=== PATIENT | female | born 1955 | race Caucasian/White ===

== ENCOUNTER 2018-02-07 22:35 | Inpatient (IN) | payer MEDICARE, MEDICAID ==
[~2018-02-07] VITALS: Ht 152.4 cm; Wt 129.9 kg
[2018-02-07 23:20] LABS: BASOPHILS % (AUTO) 0.3 % (0-1); EOSINOPHILS # (AUTO) 0.1 X10'3 (0-0.9); EOSINOPHILS % (AUTO) 2.2 % (0-6); HEMOGLOBIN 11.6 g/dl (12.0-16.0); LYMPHOCYTES % (AUTO) 14.3 % (21-51); MEAN CORPUSCULAR HEMOGLOBIN 26.4 PG (27.0-31.0); MEAN CORPUSCULAR HGB CONC 33.2 % (33.0-36.5); MEAN CORPUSCULAR VOLUME 79.7 FL (78-98); MEAN PLATELET VOLUME 11.4 FL (7.4-10.4); MONOCYTES # (AUTO) 0.4 X10'3 (0-0.9); MONOCYTES % (AUTO) 6.2 % (2-12); NEUTROPHILS # (AUTO) 5.1 X10'3 (1.8-7.7); PLATELET COUNT 124 X10'3 (140-440); RED CELL DISTRIBUTION WIDTH 18.1 % (11.5-14.5); WHITE BLOOD COUNT 6.7 X10'3 (4.5-11.0)
[2018-02-07] MEDS ORDERED: CefTRIAXone 2gm/D5W 50ml 50 ML IV ONE (23:25)
[2018-02-07] MEDS ORDERED: normal saline 1000ML IV soln IV ONE (23:25)
[2018-02-07 23:28] LABS: PROTHROMBIN TIME 10.3 SECONDS (9.0-12.0)
[2018-02-07 23:32] LABS: ALANINE AMINOTRANSFERASE 19 U/L (12-78); ALBUMIN 3.4 G/DL (3.4-5.0); ALBUMIN/GLOBULIN RATIO 0.9 (1.1-1.5); ALKALINE PHOSPHATASE 91 IU/L (46-116); ANION GAP 12 (8-16); ASPARTATE AMINO TRANSFERASE 16 U/L (10-37); BILIRUBIN,TOTAL 0.8 MG/DL (0.1-1.0); BLOOD UREA NITROGEN 32 MG/DL (7-18); BUN/CREATININE RATIO 20.1 (6.6-38.0); CALCIUM 9.1 MG/DL (8.5-10.1); CHLORIDE 109 MMOL/L (99-107); CREATININE 1.59 MG/DL (0.40-0.90); GLUCOSE 112 MG/DL (70-104); POTASSIUM 3.9 MMOL/L (3.5-5.1); SODIUM 143 MMOL/L (135-145); TOTAL CARBON DIOXIDE 22.5 MMOL/L (24-32); TOTAL PROTEIN 7.1 G/DL (6.4-8.2); eGFR 33 ML/MIN
[2018-02-08 00:01] LABS: URINE HCG NEGATIVE (NEG)
[2018-02-08 00:06] LABS: CLARITY,URINE CLOUDY (Clear); COLOR,URINE YELLOW (Yellow); GLUCOSE, URINE NEGATIVE (Neg); KETONES,URINE TRACE mg/dl (Neg); LEUKOCYTE ESTERASE ,URINE SMALL (Neg); NITRITES, URINE NEGATIVE (Neg); OCCULT BLOOD,URINE NEGATIVE (Neg); PH,URINE 5.5 (4.8-8.0); PROTEIN,URINE TRACE mg/dl (Neg); UROBILINOGEN,URINE 0.2 E.U/dL (0.2-1.0)
[2018-02-08 00:11] LABS: UA COLLECTION TYPE FOLEY CATH
[2018-02-08 00:13] LABS: WBC,URINE 20-30 /HPF (0-4)
[2018-02-08 00:14] LABS: BACTERIA,URINE 4+ /HPF (Neg); RBC,URINE 0-2 /HPF (0-2); SQUAMOUS EPITHELIAL CELL,UR MODERATE /LPF (FEW); WBC CLUMPS,URINE FEW /HPF (NEGATIVE); YEAST FEW /HPF (NEGATIVE)
[2018-02-08 00:29] LABS: LARGE PLATELETS FEW; PLATELET ESTIMATE DECREASED
[2018-02-08 01:21] LABS: URINE AMPHETAMINE SCREEN NEGATIVE (Neg); URINE BARBITUATE SCREEN NEGATIVE (Neg); URINE BENZODIAZEPINES SCREEN NEGATIVE (Neg); URINE CANNABINOID SCREEN NEGATIVE (Neg); URINE COCAINE SCREEN NEGATIVE (Neg); URINE METHADONE SCREEN NEGATIVE (Neg); URINE OPIATE SCREEN NEGATIVE (Neg); URINE PHENCYCLIDINE SCREEN NEGATIVE (Neg)
[2018-02-08] MEDS ORDERED: mag hydrox/Alum hydrox/simeth 30ml oral suspension PO PRN (02:15)
[2018-02-08] MEDS ORDERED: acetaminophen 325mg tablet PO PRN ×2 (02:15)
[2018-02-08] MEDS ORDERED: HYDROcodone/acetaminophen 5mg/325mg tablet PO PRN (02:15)
[2018-02-08] MEDS ORDERED: magnesium hydroxide 30ml (MOM) UD suspension PO PRN (02:15)
[2018-02-08] MEDS ORDERED: HYDROcodone/acetaminophen 10/325mg tab PO PRN (02:15)
[2018-02-08] MEDS ORDERED: potassium Cl 20 mEq SR tablet PO PRN ×2 (02:15)
[2018-02-08] MEDS ORDERED: potassium Cl 40MEQ/NS 500ml 500 ML IV PRN ×2 (02:15)
[2018-02-08 04:00] VITALS: BP 134/37
[2018-02-08] MEDS: normal saline 1000ml 1,000 ML IV SCH ×3 (04:24→21:52)
[2018-02-08 06:00] VITALS: BP 140/60
[2018-02-08] MEDS: K and/or MAG REPLACEMENT MC SCH (08:00)
[2018-02-08] MEDS: lactobacillus rhamnosus 10,000 MMU CELLS/CAPSULE PO SCH ×2 (08:48→20:34)
[2018-02-08] MEDS: enoxaparin 40mg/0.4ml syringe SUBCUT SCH (08:48)
[2018-02-08 11:00] VITALS: BP 132/56
[2018-02-08 15:00] VITALS: BP 114/70
[2018-02-08 18:00] VITALS: BP 124/49
[2018-02-08] MEDS: CefTRIAXone/D5W-Rocephin 1gm 50 ML IV SCH (21:51)
[2018-02-08 22:00] VITALS: BP 173/57
[2018-02-09] MEDS ORDERED: albuterol 2.5 MG/3 ML nebule NEB ONE (00:20)
[2018-02-09 03:00] VITALS: BP 105/37
[2018-02-09 05:59] LABS: BASOPHILS % (AUTO) 0 % (0-1); EOSINOPHILS % (AUTO) 0.3 % (0-6); HEMATOCRIT 32.7 % (35.0-45.0); HEMOGLOBIN 10.7 g/dl (12.0-16.0); LYMPHOCYTES # (AUTO) 0.5 X10'3 (1.1-4.8); LYMPHOCYTES % (AUTO) 6.8 % (21-51); MEAN CORPUSCULAR HGB CONC 32.8 % (33.0-36.5); MEAN CORPUSCULAR VOLUME 79.5 FL (78-98); MONOCYTES # (AUTO) 0.4 X10'3 (0-0.9); MONOCYTES % (AUTO) 4.7 % (2-12); NEUTROPHILS # (AUTO) 6.7 X10'3 (1.8-7.7); NEUTROPHILS % (AUTO) 88.2 % (42-75); PLATELET COUNT 116 X10'3 (140-440); RED BLOOD COUNT 4.11 X10'6 (4.20-5.60); WHITE BLOOD COUNT 7.6 X10'3 (4.5-11.0)
[2018-02-09 06:00] VITALS: BP 105/55
[2018-02-09 06:27] LABS: ALBUMIN 2.9 G/DL (3.4-5.0); ANION GAP 8 (8-16); BLOOD UREA NITROGEN 28 MG/DL (7-18); BUN/CREATININE RATIO 22.8 (6.6-38.0); CALCIUM 8.2 MG/DL (8.5-10.1); CHLORIDE 110 MMOL/L (99-107); CREATININE 1.23 MG/DL (0.40-0.90); GLUCOSE 130 MG/DL (70-104); POTASSIUM 3.8 MMOL/L (3.5-5.1); SODIUM 140 MMOL/L (135-145); TOTAL CARBON DIOXIDE 21.9 MMOL/L (24-32); eGFR 44 ML/MIN
[2018-02-09] MEDS: K and/or MAG REPLACEMENT MC SCH (08:00)
[2018-02-09] MEDS: lactobacillus rhamnosus 10,000 MMU CELLS/CAPSULE PO SCH ×2 (08:18→19:57)
[2018-02-09] MEDS: enoxaparin 40mg/0.4ml syringe SUBCUT SCH (08:18)
[2018-02-09 11:00] VITALS: BP 105/50
[2018-02-09] MEDS ORDERED: CLOP75TA35 PO (11:01)
[2018-02-09] MEDS ORDERED: ERGO500014 PO (11:02)
[2018-02-09] MEDS ORDERED: SERT100T PO (11:02)
[2018-02-09] MEDS ORDERED: OXYB5TAB11 PO (11:02)
[2018-02-09] MEDS ORDERED: TRAZ-146 PO (11:03)
[2018-02-09] MEDS ORDERED: fluconazole 100mg tablet PO ONE (11:50)
[2018-02-09] MEDS: normal saline 1000ml 1,000 ML IV SCH ×2 (12:00→19:10)
[2018-02-09 15:00] VITALS: BP 105/40
[2018-02-09] MEDS: nystatin 15 GM powder TP SCH ×2 (15:50→20:38)
[2018-02-09 19:00] VITALS: BP 122/69
[2018-02-09] MEDS: oxybutynin 5mg tablet PO SCH (19:57)
[2018-02-09] MEDS: sertraline 50mg tablet PO SCH (19:57)
[2018-02-09] MEDS: vitamin D (cholecalciferol) 1,000 unit tablet PO SCH (19:57)
[2018-02-09] MEDS: CefTRIAXone/D5W-Rocephin 1gm 50 ML IV SCH (20:38)
[2018-02-09] MEDS: traZODone 50mg tablet PO SCH (20:55)
[2018-02-09 23:00] VITALS: BP 113/51
[2018-02-10 03:00] VITALS: BP 125/55
[2018-02-10] MEDS: normal saline 1000ml 1,000 ML IV SCH ×2 (04:15→14:15)
[2018-02-10 05:08] LABS: BASOPHILS % (AUTO) 0.2 % (0-1); EOSINOPHILS # (AUTO) 0.1 X10'3 (0-0.9); EOSINOPHILS % (AUTO) 2.6 % (0-6); HEMATOCRIT 29.4 % (35.0-45.0); HEMOGLOBIN 9.7 g/dl (12.0-16.0); LYMPHOCYTES # (AUTO) 0.7 X10'3 (1.1-4.8); LYMPHOCYTES % (AUTO) 13.8 % (21-51); MEAN CORPUSCULAR HEMOGLOBIN 26.4 PG (27.0-31.0); MEAN CORPUSCULAR HGB CONC 32.9 % (33.0-36.5); MEAN CORPUSCULAR VOLUME 80.1 FL (78-98); MEAN PLATELET VOLUME 11.5 FL (7.4-10.4); MONOCYTES # (AUTO) 0.3 X10'3 (0-0.9); NEUTROPHILS # (AUTO) 4.1 X10'3 (1.8-7.7); NEUTROPHILS % (AUTO) 77.4 % (42-75); PLATELET COUNT 102 X10'3 (140-440); RED BLOOD COUNT 3.67 X10'6 (4.20-5.60); RED CELL DISTRIBUTION WIDTH 18.3 % (11.5-14.5); WHITE BLOOD COUNT 5.3 X10'3 (4.5-11.0)
[2018-02-10 05:45] LABS: ALBUMIN 2.7 G/DL (3.4-5.0); ANION GAP 9 (8-16); BLOOD UREA NITROGEN 27 MG/DL (7-18); BUN/CREATININE RATIO 19.7 (6.6-38.0); CALCIUM 8.7 MG/DL (8.5-10.1); CHLORIDE 110 MMOL/L (99-107); CREATININE 1.37 MG/DL (0.40-0.90); GLUCOSE 104 MG/DL (70-104); POTASSIUM 3.9 MMOL/L (3.5-5.1); SODIUM 141 MMOL/L (135-145); TOTAL CARBON DIOXIDE 22.3 MMOL/L (24-32); eGFR 39 ML/MIN
[2018-02-10 06:00] VITALS: BP 139/66
[2018-02-10 07:15] LABS: PLATELET ESTIMATE DECREASED
[2018-02-10 07:16] LABS: LARGE PLATELETS FEW
[2018-02-10] MEDS: vitamin D (cholecalciferol) 1,000 unit tablet PO SCH (07:51)
[2018-02-10] MEDS: oxybutynin 5mg tablet PO SCH ×2 (07:52→20:05)
[2018-02-10] MEDS: lactobacillus rhamnosus 10,000 MMU CELLS/CAPSULE PO SCH ×2 (07:52→20:04)
[2018-02-10] MEDS: clopidogrel 75mg tablet PO SCH (07:52)
[2018-02-10] MEDS: sertraline 50mg tablet PO SCH ×2 (07:52→20:06)
[2018-02-10] MEDS: enoxaparin 40mg/0.4ml syringe SUBCUT SCH (07:53)
[2018-02-10] MEDS: nystatin 15 GM powder TP SCH ×3 (07:54→20:05)
[2018-02-10] MEDS: K and/or MAG REPLACEMENT MC SCH (08:00)
[2018-02-10 11:00] VITALS: BP 123/64
[2018-02-10] MEDS: ipratropium/albuterol 3ml nebule NEB PRN ×2 (12:45→20:41)
[2018-02-10 15:00] VITALS: BP 125/71
[2018-02-10 17:18] LABS: FERRITIN 108 NG/ML (8-252)
[2018-02-10 17:27] LABS: % IRON SATURATION 7 % (11-46); IRON 20 UG/DL (49-151); TOTAL IRON BINDING CAPACITY 270 UG/DL (259-388)
[2018-02-10 19:27] VITALS: BP 128/66
[2018-02-10] MEDS: CefTRIAXone/D5W-Rocephin 1gm 50 ML IV SCH (20:05)
[2018-02-10] MEDS: traZODone 50mg tablet PO SCH (20:05)
[2018-02-10 23:00] VITALS: BP 118/54
[2018-02-11] VITALS (7 sets, daily range): BP systolic 105–175; BP diastolic 36–66
[2018-02-11 05:00] LABS: BASOPHILS % (AUTO) 0.3 % (0-1); EOSINOPHILS # (AUTO) 0.2 X10'3 (0-0.9); EOSINOPHILS % (AUTO) 2.9 % (0-6); HEMOGLOBIN 9.8 g/dl (12.0-16.0); LYMPHOCYTES # (AUTO) 0.5 X10'3 (1.1-4.8); LYMPHOCYTES % (AUTO) 8.5 % (21-51); MEAN CORPUSCULAR HEMOGLOBIN 26.4 PG (27.0-31.0); MEAN CORPUSCULAR HGB CONC 32.7 % (33.0-36.5); MEAN CORPUSCULAR VOLUME 80.9 FL (78-98); MEAN PLATELET VOLUME 11.6 FL (7.4-10.4); MONOCYTES # (AUTO) 0.3 X10'3 (0-0.9); MONOCYTES % (AUTO) 5.9 % (2-12); NEUTROPHILS # (AUTO) 4.8 X10'3 (1.8-7.7); NEUTROPHILS % (AUTO) 82.4 % (42-75); PLATELET COUNT 101 X10'3 (140-440); RED BLOOD COUNT 3.71 X10'6 (4.20-5.60); RED CELL DISTRIBUTION WIDTH 18.6 % (11.5-14.5); WHITE BLOOD COUNT 5.8 X10'3 (4.5-11.0)
[2018-02-11 05:28] LABS: ALBUMIN 2.8 G/DL (3.4-5.0); ANION GAP 10 (8-16); BLOOD UREA NITROGEN 26 MG/DL (7-18); BUN/CREATININE RATIO 18.8 (6.6-38.0); CALCIUM 8.9 MG/DL (8.5-10.1); CHLORIDE 109 MMOL/L (99-107); CREATININE 1.38 MG/DL (0.40-0.90); GLUCOSE 111 MG/DL (70-104); SODIUM 142 MMOL/L (135-145); TOTAL CARBON DIOXIDE 23.5 MMOL/L (24-32); eGFR 38 ML/MIN
[2018-02-11] MEDS: normal saline 1000ml 1,000 ML IV SCH ×3 (08:20→20:12)
[2018-02-11] MEDS: lactobacillus rhamnosus 10,000 MMU CELLS/CAPSULE PO SCH ×2 (08:22→20:13)
[2018-02-11] MEDS: vitamin D (cholecalciferol) 1,000 unit tablet PO SCH (08:22)
[2018-02-11] MEDS: clopidogrel 75mg tablet PO SCH (08:22)
[2018-02-11] MEDS: sertraline 50mg tablet PO SCH ×2 (08:22→20:12)
[2018-02-11] MEDS: oxybutynin 5mg tablet PO SCH ×2 (08:22→20:12)
[2018-02-11] MEDS: enoxaparin 40mg/0.4ml syringe SUBCUT SCH (08:23)
[2018-02-11] MEDS: nystatin 15 GM powder TP SCH ×3 (08:23→20:15)
[2018-02-11] MEDS: K and/or MAG REPLACEMENT MC SCH (08:24)
[2018-02-11] MEDS: levoFLOXACIN-Levaquin 750MG/D5 150 ML IV SCH (10:51)
[2018-02-11] MEDS: ipratropium/albuterol 3ml nebule NEB PRN (11:08)
[2018-02-11] MEDS: fluconazole-Diflucan 100MG/NS 50 ML IV SCH (13:33)
[2018-02-11] MEDS ORDERED: VANCOMYCIN LEVEL IV ONE (14:30)
[2018-02-11] MEDS: ipratropium/albuterol 3ml nebule NEB SCH ×3 (16:00→23:37)
[2018-02-11] MEDS: traZODone 50mg tablet PO SCH (20:12)
[2018-02-12 02:00] VITALS: BP 150/66
[2018-02-12] MEDS: ipratropium/albuterol 3ml nebule NEB SCH ×6 (03:05→23:28)
[2018-02-12 05:11] LABS: BASOPHILS % (AUTO) 0.3 % (0-1); EOSINOPHILS # (AUTO) 0.2 X10'3 (0-0.9); EOSINOPHILS % (AUTO) 3.1 % (0-6); HEMATOCRIT 28.9 % (35.0-45.0); HEMOGLOBIN 9.5 g/dl (12.0-16.0); LYMPHOCYTES # (AUTO) 0.5 X10'3 (1.1-4.8); MEAN CORPUSCULAR HEMOGLOBIN 26.3 PG (27.0-31.0); MEAN CORPUSCULAR HGB CONC 32.9 % (33.0-36.5); MEAN CORPUSCULAR VOLUME 79.9 FL (78-98); MEAN PLATELET VOLUME 11.4 FL (7.4-10.4); MONOCYTES # (AUTO) 0.3 X10'3 (0-0.9); MONOCYTES % (AUTO) 5.9 % (2-12); NEUTROPHILS # (AUTO) 4.3 X10'3 (1.8-7.7); NEUTROPHILS % (AUTO) 81.7 % (42-75); PLATELET COUNT 107 X10'3 (140-440); RED BLOOD COUNT 3.62 X10'6 (4.20-5.60); RED CELL DISTRIBUTION WIDTH 18.6 % (11.5-14.5); WHITE BLOOD COUNT 5.2 X10'3 (4.5-11.0)
[2018-02-12 05:28] LABS: ALBUMIN 2.6 G/DL (3.4-5.0); ANION GAP 8 (8-16); BLOOD UREA NITROGEN 24 MG/DL (7-18); BUN/CREATININE RATIO 18.8 (6.6-38.0); CALCIUM 8.8 MG/DL (8.5-10.1); CHLORIDE 110 MMOL/L (99-107); CREATININE 1.28 MG/DL (0.40-0.90); GLUCOSE 110 MG/DL (70-104); POTASSIUM 3.9 MMOL/L (3.5-5.1); SODIUM 143 MMOL/L (135-145); TOTAL CARBON DIOXIDE 24.6 MMOL/L (24-32); eGFR 42 ML/MIN
[2018-02-12 06:00] VITALS: BP 150/70
[2018-02-12] MEDS: K and/or MAG REPLACEMENT MC SCH (08:00)
[2018-02-12] MEDS: fluconazole-Diflucan 100MG/NS 50 ML IV SCH (08:03)
[2018-02-12] MEDS: levoFLOXACIN-Levaquin 750MG/D5 150 ML IV SCH (08:05)
[2018-02-12] MEDS: sertraline 50mg tablet PO SCH ×2 (08:06→20:41)
[2018-02-12] MEDS: clopidogrel 75mg tablet PO SCH (08:06)
[2018-02-12] MEDS: vitamin D (cholecalciferol) 1,000 unit tablet PO SCH (08:06)
[2018-02-12] MEDS: lactobacillus rhamnosus 10,000 MMU CELLS/CAPSULE PO SCH ×2 (08:06→20:40)
[2018-02-12] MEDS: oxybutynin 5mg tablet PO SCH ×2 (08:06→20:40)
[2018-02-12] MEDS: nystatin 15 GM powder TP SCH ×3 (08:06→20:41)
[2018-02-12] MEDS: enoxaparin 40mg/0.4ml syringe SUBCUT SCH (08:14)
[2018-02-12 11:00] VITALS: BP 101/78
[2018-02-12] MEDS ORDERED: methylPREDNISolone sod succ 125mg/2ml vial IV ONE (14:20)
[2018-02-12] MEDS: methylPREDNISolone sod succ 125mg/2ml vial IV ONE ×2 (14:37→14:38)
[2018-02-12 15:00] VITALS: BP 107/55
[2018-02-12] MEDS: normal saline 1000ml 1,000 ML IV SCH (17:44)
[2018-02-12 19:30] VITALS: BP 136/61
[2018-02-12] MEDS: traZODone 50mg tablet PO SCH (20:40)
[2018-02-12] MEDS: methylPREDNISolone sod succ 125mg/2ml vial IV SCH (20:40)
[2018-02-12 21:08] LABS: OCCULT BLOOD STOOL NEGATIVE (Neg)
[2018-02-12 22:00] VITALS: BP 123/61
[2018-02-13] MEDS: methylPREDNISolone sod succ 125mg/2ml vial IV SCH ×4 (02:10→19:53)
[2018-02-13 02:20] VITALS: BP 134/55
[2018-02-13] MEDS: ipratropium/albuterol 3ml nebule NEB SCH ×6 (03:51→23:22)
[2018-02-13 05:05] LABS: BASOPHILS % (AUTO) 0.1 % (0-1); EOSINOPHILS % (AUTO) 0 % (0-6); HEMATOCRIT 30.5 % (35.0-45.0); LYMPHOCYTES # (AUTO) 0.3 X10'3 (1.1-4.8); LYMPHOCYTES % (AUTO) 6.8 % (21-51); MEAN CORPUSCULAR HEMOGLOBIN 26.3 PG (27.0-31.0); MEAN CORPUSCULAR HGB CONC 32.8 % (33.0-36.5); MEAN CORPUSCULAR VOLUME 80.3 FL (78-98); MEAN PLATELET VOLUME 11.2 FL (7.4-10.4); MONOCYTES % (AUTO) 0.6 % (2-12); NEUTROPHILS # (AUTO) 3.9 X10'3 (1.8-7.7); NEUTROPHILS % (AUTO) 92.5 % (42-75); PLATELET COUNT 110 X10'3 (140-440); RED CELL DISTRIBUTION WIDTH 18.2 % (11.5-14.5); WHITE BLOOD COUNT 4.3 X10'3 (4.5-11.0)
[2018-02-13 05:18] LABS: ALBUMIN 2.8 G/DL (3.4-5.0); ANION GAP 7 (8-16); BLOOD UREA NITROGEN 27 MG/DL (7-18); BUN/CREATININE RATIO 20.8 (6.6-38.0); CALCIUM 9.1 MG/DL (8.5-10.1); CHLORIDE 109 MMOL/L (99-107); GLUCOSE 184 MG/DL (70-104); POTASSIUM 4.4 MMOL/L (3.5-5.1); SODIUM 139 MMOL/L (135-145); TOTAL CARBON DIOXIDE 23.4 MMOL/L (24-32); eGFR 41 ML/MIN
[2018-02-13 05:30] VITALS: BP 135/62
[2018-02-13 05:58] LABS: LARGE PLATELETS FEW; PLATELET ESTIMATE DECREASED
[2018-02-13] MEDS: vitamin D (cholecalciferol) 1,000 unit tablet PO SCH (07:48)
[2018-02-13] MEDS: sertraline 50mg tablet PO SCH ×2 (07:50→19:53)
[2018-02-13] MEDS: lactobacillus rhamnosus 10,000 MMU CELLS/CAPSULE PO SCH ×2 (07:50→19:53)
[2018-02-13] MEDS: clopidogrel 75mg tablet PO SCH (07:50)
[2018-02-13] MEDS: oxybutynin 5mg tablet PO SCH ×2 (07:50→19:53)
[2018-02-13] MEDS: enoxaparin 40mg/0.4ml syringe SUBCUT SCH (07:51)
[2018-02-13] MEDS: K and/or MAG REPLACEMENT MC SCH (08:00)
[2018-02-13] MEDS: fluconazole 100mg tablet PO SCH (08:12)
[2018-02-13] MEDS: nystatin 15 GM powder TP SCH ×3 (08:12→19:53)
[2018-02-13 11:00] VITALS: BP 122/57
[2018-02-13] MEDS: levoFLOXACIN 750MG TABLET PO SCH (11:12)
[2018-02-13] MEDS: normal saline 1000ml 1,000 ML IV SCH (13:51)
[2018-02-13 15:00] VITALS: BP 104/42
[2018-02-13 18:00] VITALS: BP 115/48
[2018-02-13] MEDS: traZODone 50mg tablet PO SCH (19:52)
[2018-02-13 22:00] VITALS: BP 103/65
[2018-02-14] MEDS: methylPREDNISolone sod succ 125mg/2ml vial IV SCH ×3 (01:26→20:34)
[2018-02-14 02:00] VITALS: BP 126/69
[2018-02-14] MEDS: ipratropium/albuterol 3ml nebule NEB SCH ×6 (02:42→23:05)
[2018-02-14 05:46] LABS: BASOPHILS % (AUTO) 0 % (0-1); EOSINOPHILS % (AUTO) 0.5 % (0-6); HEMATOCRIT 30.1 % (35.0-45.0); HEMOGLOBIN 9.9 g/dl (12.0-16.0); LYMPHOCYTES # (AUTO) 0.6 X10'3 (1.1-4.8); LYMPHOCYTES % (AUTO) 6.2 % (21-51); MEAN CORPUSCULAR HEMOGLOBIN 26.4 PG (27.0-31.0); MEAN PLATELET VOLUME 11.5 FL (7.4-10.4); MONOCYTES # (AUTO) 0.2 X10'3 (0-0.9); NEUTROPHILS # (AUTO) 8.1 X10'3 (1.8-7.7); NEUTROPHILS % (AUTO) 91.3 % (42-75); PLATELET COUNT 121 X10'3 (140-440); RED BLOOD COUNT 3.76 X10'6 (4.20-5.60); RED CELL DISTRIBUTION WIDTH 18.1 % (11.5-14.5); WHITE BLOOD COUNT 8.9 X10'3 (4.5-11.0)
[2018-02-14 06:00] VITALS: BP 126/43
[2018-02-14 06:04] LABS: ALANINE AMINOTRANSFERASE 43 U/L (12-78); ALBUMIN 2.8 G/DL (3.4-5.0); ALBUMIN/GLOBULIN RATIO 0.7 (1.1-1.5); ALKALINE PHOSPHATASE 89 IU/L (46-116); ANION GAP 10 (8-16); ASPARTATE AMINO TRANSFERASE 49 U/L (10-37); BILIRUBIN,TOTAL 0.5 MG/DL (0.1-1.0); BLOOD UREA NITROGEN 35 MG/DL (7-18); BUN/CREATININE RATIO 26.1 (6.6-38.0); CALCIUM 9.1 MG/DL (8.5-10.1); CHLORIDE 109 MMOL/L (99-107); CREATININE 1.34 MG/DL (0.40-0.90); GLUCOSE 176 MG/DL (70-104); MAGNESIUM 1.8 MG/DL (1.5-2.4); PHOSPHORUS 3.9 MG/DL (2.3-4.5); POTASSIUM 4.4 MMOL/L (3.5-5.1); SODIUM 141 MMOL/L (135-145); TOTAL CARBON DIOXIDE 22.5 MMOL/L (24-32); TOTAL PROTEIN 6.7 G/DL (6.4-8.2); eGFR 40 ML/MIN
[2018-02-14 06:05] LABS: RPR Non Reactive (Non Reactive)
[2018-02-14 06:17] LABS: ANISOCYTOSIS 2+; PLATELET ESTIMATE DECREASED; ROULEAUX 1+
[2018-02-14] MEDS: nystatin 15 GM powder TP SCH ×3 (07:50→20:36)
[2018-02-14] MEDS: sertraline 50mg tablet PO SCH ×2 (07:52→20:37)
[2018-02-14] MEDS: fluconazole 100mg tablet PO SCH (07:52)
[2018-02-14] MEDS: clopidogrel 75mg tablet PO SCH (07:52)
[2018-02-14] MEDS: lactobacillus rhamnosus 10,000 MMU CELLS/CAPSULE PO SCH ×2 (07:52→20:36)
[2018-02-14] MEDS: oxybutynin 5mg tablet PO SCH ×2 (07:53→20:37)
[2018-02-14] MEDS: vitamin D (cholecalciferol) 1,000 unit tablet PO SCH (07:53)
[2018-02-14] MEDS: enoxaparin 40mg/0.4ml syringe SUBCUT SCH (07:54)
[2018-02-14] MEDS: K and/or MAG REPLACEMENT MC SCH (08:00)
[2018-02-14] MEDS ORDERED: cyanocobalamin 1,000 mcg/ml inj IM SCH (08:45)
[2018-02-14] MEDS: levoFLOXACIN 750MG TABLET PO SCH (10:44)
[2018-02-14 11:00] VITALS: BP 139/61
[2018-02-14 15:00] VITALS: BP 124/43
[2018-02-14 19:00] VITALS: BP 120/56
[2018-02-14] MEDS: traZODone 50mg tablet PO SCH (20:37)
[2018-02-14 23:00] VITALS: BP 130/59
[2018-02-15] MEDS: normal saline 1000ml 1,000 ML IV SCH ×2 (00:33→20:14)
[2018-02-15] MEDS: ipratropium/albuterol 3ml nebule NEB SCH ×6 (02:56→23:05)
[2018-02-15 03:00] VITALS: BP 122/55
[2018-02-15 05:52] LABS: BASOPHILS % (AUTO) 0.1 % (0-1); EOSINOPHILS # (AUTO) 0.1 X10'3 (0-0.9); HEMOGLOBIN 9.8 g/dl (12.0-16.0); LYMPHOCYTES # (AUTO) 0.5 X10'3 (1.1-4.8); LYMPHOCYTES % (AUTO) 5.7 % (21-51); MEAN CORPUSCULAR HEMOGLOBIN 26.4 PG (27.0-31.0); MEAN CORPUSCULAR HGB CONC 32.7 % (33.0-36.5); MEAN CORPUSCULAR VOLUME 80.6 FL (78-98); MEAN PLATELET VOLUME 11.6 FL (7.4-10.4); MONOCYTES # (AUTO) 0.3 X10'3 (0-0.9); MONOCYTES % (AUTO) 3.5 % (2-12); NEUTROPHILS % (AUTO) 89.7 % (42-75); PLATELET COUNT 134 X10'3 (140-440); RED BLOOD COUNT 3.72 X10'6 (4.20-5.60); RED CELL DISTRIBUTION WIDTH 18.6 % (11.5-14.5); WHITE BLOOD COUNT 8.9 X10'3 (4.5-11.0)
[2018-02-15 06:00] VITALS: BP 126/71
[2018-02-15 06:12] LABS: ALANINE AMINOTRANSFERASE 49 U/L (12-78); ALBUMIN 2.8 G/DL (3.4-5.0); ALBUMIN/GLOBULIN RATIO 0.7 (1.1-1.5); ALKALINE PHOSPHATASE 86 IU/L (46-116); ANION GAP 11 (8-16); ASPARTATE AMINO TRANSFERASE 38 U/L (10-37); BILIRUBIN,TOTAL 0.4 MG/DL (0.1-1.0); BLOOD UREA NITROGEN 50 MG/DL (7-18); CALCIUM 9.1 MG/DL (8.5-10.1); CHLORIDE 109 MMOL/L (99-107); CREATININE 1.39 MG/DL (0.40-0.90); GLUCOSE 166 MG/DL (70-104); MAGNESIUM 1.9 MG/DL (1.5-2.4); PHOSPHORUS 3.5 MG/DL (2.3-4.5); POTASSIUM 4.4 MMOL/L (3.5-5.1); SODIUM 142 MMOL/L (135-145); TOTAL CARBON DIOXIDE 22.4 MMOL/L (24-32); TOTAL PROTEIN 6.6 G/DL (6.4-8.2); eGFR 38 ML/MIN
[2018-02-15 06:39] LABS: ANISOCYTOSIS 2+; LARGE PLATELETS FEW; PLATELET ESTIMATE DECREASED
[2018-02-15] MEDS: K and/or MAG REPLACEMENT MC SCH (08:00)
[2018-02-15] MEDS: oxybutynin 5mg tablet PO SCH ×2 (08:32→20:13)
[2018-02-15] MEDS: methylPREDNISolone sod succ 125mg/2ml vial IV SCH ×2 (08:32→20:14)
[2018-02-15] MEDS: lactobacillus rhamnosus 10,000 MMU CELLS/CAPSULE PO SCH ×2 (08:32→20:13)
[2018-02-15] MEDS: sertraline 50mg tablet PO SCH ×2 (08:32→20:14)
[2018-02-15] MEDS: clopidogrel 75mg tablet PO SCH (08:32)
[2018-02-15] MEDS: vitamin D (cholecalciferol) 1,000 unit tablet PO SCH (08:34)
[2018-02-15] MEDS: enoxaparin 40mg/0.4ml syringe SUBCUT SCH (08:35)
[2018-02-15] MEDS: nystatin 15 GM powder TP SCH ×3 (08:35→20:14)
[2018-02-15] MEDS: fluconazole 100mg tablet PO SCH (09:48)
[2018-02-15 11:00] VITALS: BP 125/63
[2018-02-15] MEDS: levoFLOXACIN 750MG TABLET PO SCH (11:02)
[2018-02-15 15:00] VITALS: BP 116/60
[2018-02-15 19:00] VITALS: BP 125/60
[2018-02-15] MEDS: traZODone 50mg tablet PO SCH (20:13)
[2018-02-15 22:00] VITALS: BP 132/47
[2018-02-16 03:18] VITALS: BP 139/53
[2018-02-16] MEDS: ipratropium/albuterol 3ml nebule NEB SCH ×5 (03:43→19:41)
[2018-02-16 06:24] LABS: BASOPHILS % (AUTO) 0 % (0-1); EOSINOPHILS % (AUTO) 0 % (0-6); HEMATOCRIT 29.6 % (35.0-45.0); HEMOGLOBIN 9.9 g/dl (12.0-16.0); LYMPHOCYTES # (AUTO) 0.5 X10'3 (1.1-4.8); LYMPHOCYTES % (AUTO) 7.7 % (21-51); MEAN CORPUSCULAR HEMOGLOBIN 26.4 PG (27.0-31.0); MEAN CORPUSCULAR HGB CONC 33.2 % (33.0-36.5); MEAN CORPUSCULAR VOLUME 79.5 FL (78-98); MEAN PLATELET VOLUME 11.4 FL (7.4-10.4); MONOCYTES # (AUTO) 0.2 X10'3 (0-0.9); MONOCYTES % (AUTO) 3.4 % (2-12); NEUTROPHILS # (AUTO) 6.3 X10'3 (1.8-7.7); NEUTROPHILS % (AUTO) 88.9 % (42-75); PLATELET COUNT 125 X10'3 (140-440); RED BLOOD COUNT 3.73 X10'6 (4.20-5.60); RED CELL DISTRIBUTION WIDTH 18.6 % (11.5-14.5); WHITE BLOOD COUNT 7.1 X10'3 (4.5-11.0)
[2018-02-16 06:59] VITALS: BP 136/66
[2018-02-16 07:01] LABS: ALANINE AMINOTRANSFERASE 66 U/L (12-78); ALBUMIN 2.7 G/DL (3.4-5.0); ALBUMIN/GLOBULIN RATIO 0.8 (1.1-1.5); ALKALINE PHOSPHATASE 73 IU/L (46-116); ANION GAP 11 (8-16); ASPARTATE AMINO TRANSFERASE 41 U/L (10-37); BILIRUBIN,TOTAL 0.4 MG/DL (0.1-1.0); BLOOD UREA NITROGEN 47 MG/DL (7-18); BUN/CREATININE RATIO 34.6 (6.6-38.0); CALCIUM 8.3 MG/DL (8.5-10.1); CHLORIDE 108 MMOL/L (99-107); CREATININE 1.36 MG/DL (0.40-0.90); GLUCOSE 181 MG/DL (70-104); MAGNESIUM 1.8 MG/DL (1.5-2.4); PHOSPHORUS 2.9 MG/DL (2.3-4.5); POTASSIUM 4.2 MMOL/L (3.5-5.1); SODIUM 140 MMOL/L (135-145); TOTAL CARBON DIOXIDE 21.4 MMOL/L (24-32); eGFR 39 ML/MIN
[2018-02-16 07:34] LABS: ANISOCYTOSIS 2+; LARGE PLATELETS FEW; PLATELET ESTIMATE DECREASED
[2018-02-16] MEDS: K and/or MAG REPLACEMENT MC SCH (07:35)
[2018-02-16] MEDS: nystatin 15 GM powder TP SCH ×3 (07:44→20:42)
[2018-02-16] MEDS: clopidogrel 75mg tablet PO SCH (07:44)
[2018-02-16] MEDS: methylPREDNISolone sod succ 125mg/2ml vial IV SCH (07:44)
[2018-02-16] MEDS: lactobacillus rhamnosus 10,000 MMU CELLS/CAPSULE PO SCH ×2 (07:45→20:42)
[2018-02-16] MEDS: vitamin D (cholecalciferol) 1,000 unit tablet PO SCH (07:45)
[2018-02-16] MEDS: fluconazole 100mg tablet PO SCH (07:45)
[2018-02-16] MEDS: sertraline 50mg tablet PO SCH ×2 (07:45→20:42)
[2018-02-16] MEDS: oxybutynin 5mg tablet PO SCH ×2 (07:45→20:42)
[2018-02-16] MEDS: enoxaparin 40mg/0.4ml syringe SUBCUT SCH (07:51)
[2018-02-16 11:00] VITALS: BP_SYST 133; BP_SYST 97; BP_DIAS 49; BP_DIAS 52
[2018-02-16] MEDS ORDERED: levoFLOXACIN 500mg tablet PO SCH (11:00)
[2018-02-16 15:00] VITALS: BP 111/43
[2018-02-16] MEDS: normal saline 1000ml 1,000 ML IV SCH (16:57)
[2018-02-16 19:00] VITALS: BP 127/56
[2018-02-16] MEDS: methylPREDNISolone sod succ/PF 40mg inj. IV SCH (20:42)
[2018-02-16] MEDS: traZODone 50mg tablet PO SCH (20:42)
[2018-02-16 23:00] VITALS: BP 146/72
[2018-02-17 01:01] LABS: BASOPHILS % (AUTO) 0.1 % (0-1); EOSINOPHILS % (AUTO) 0.2 % (0-6); HEMATOCRIT 31.5 % (35.0-45.0); HEMOGLOBIN 10.2 g/dl (12.0-16.0); LYMPHOCYTES # (AUTO) 0.6 X10'3 (1.1-4.8); LYMPHOCYTES % (AUTO) 6.3 % (21-51); MEAN CORPUSCULAR HEMOGLOBIN 26.2 PG (27.0-31.0); MEAN CORPUSCULAR HGB CONC 32.4 % (33.0-36.5); MEAN PLATELET VOLUME 11.8 FL (7.4-10.4); MONOCYTES # (AUTO) 0.4 X10'3 (0-0.9); MONOCYTES % (AUTO) 4.4 % (2-12); NEUTROPHILS # (AUTO) 8.4 X10'3 (1.8-7.7); PLATELET COUNT 130 X10'3 (140-440); RED CELL DISTRIBUTION WIDTH 17.8 % (11.5-14.5); WHITE BLOOD COUNT 9.4 X10'3 (4.5-11.0)
[2018-02-17 01:14] LABS: ALANINE AMINOTRANSFERASE 84 U/L (12-78); ALBUMIN 2.8 G/DL (3.4-5.0); ALBUMIN/GLOBULIN RATIO 0.8 (1.1-1.5); ALKALINE PHOSPHATASE 72 IU/L (46-116); ANION GAP 8 (8-16); ASPARTATE AMINO TRANSFERASE 45 U/L (10-37); BILIRUBIN,TOTAL 0.4 MG/DL (0.1-1.0); BLOOD UREA NITROGEN 53 MG/DL (7-18); BUN/CREATININE RATIO 34.9 (6.6-38.0); CALCIUM 8.4 MG/DL (8.5-10.1); CHLORIDE 110 MMOL/L (99-107); CREATININE 1.52 MG/DL (0.40-0.90); GLUCOSE 165 MG/DL (70-104); PHOSPHORUS 2.8 MG/DL (2.3-4.5); POTASSIUM 4.2 MMOL/L (3.5-5.1); SODIUM 141 MMOL/L (135-145); TOTAL CARBON DIOXIDE 22.6 MMOL/L (24-32); TOTAL PROTEIN 6.1 G/DL (6.4-8.2); eGFR 34 ML/MIN
[2018-02-17 03:00] VITALS: BP 105/50
[2018-02-17] MEDS: ipratropium/albuterol 3ml nebule NEB SCH ×7 (03:25→23:27)
[2018-02-17] MEDS: K and/or MAG REPLACEMENT MC SCH (08:00)
[2018-02-17] MEDS: lactobacillus rhamnosus 10,000 MMU CELLS/CAPSULE PO SCH ×2 (08:01→20:10)
[2018-02-17] MEDS: sertraline 50mg tablet PO SCH ×2 (08:02→20:09)
[2018-02-17] MEDS: nystatin 15 GM powder TP SCH ×3 (08:02→20:10)
[2018-02-17] MEDS: fluconazole 100mg tablet PO SCH (08:02)
[2018-02-17] MEDS: enoxaparin 40mg/0.4ml syringe SUBCUT SCH (08:02)
[2018-02-17] MEDS: clopidogrel 75mg tablet PO SCH (08:02)
[2018-02-17] MEDS: oxybutynin 5mg tablet PO SCH ×2 (08:02→20:10)
[2018-02-17] MEDS: methylPREDNISolone sod succ/PF 40mg inj. IV SCH ×2 (08:03→20:10)
[2018-02-17] MEDS: vitamin D (cholecalciferol) 1,000 unit tablet PO SCH (08:04)
[2018-02-17 11:00] VITALS: BP 123/89
[2018-02-17] MEDS: normal saline 1000ml 1,000 ML IV SCH (12:43)
[2018-02-17 15:00] VITALS: BP 140/68
[2018-02-17 19:00] VITALS: BP 127/69
[2018-02-17] MEDS: traZODone 50mg tablet PO SCH (20:10)
[2018-02-17 23:00] VITALS: BP 117/61
[2018-02-18 03:00] VITALS: BP 134/60
[2018-02-18] MEDS: ipratropium/albuterol 3ml nebule NEB SCH ×6 (03:49→23:13)
[2018-02-18 05:31] LABS: BASOPHILS % (AUTO) 0 % (0-1); EOSINOPHILS % (AUTO) 0 % (0-6); HEMATOCRIT 32.4 % (35.0-45.0); HEMOGLOBIN 10.6 g/dl (12.0-16.0); LYMPHOCYTES # (AUTO) 0.7 X10'3 (1.1-4.8); MEAN CORPUSCULAR HEMOGLOBIN 26.1 PG (27.0-31.0); MEAN CORPUSCULAR HGB CONC 32.7 % (33.0-36.5); MEAN CORPUSCULAR VOLUME 79.8 FL (78-98); MEAN PLATELET VOLUME 10.9 FL (7.4-10.4); MONOCYTES # (AUTO) 0.4 X10'3 (0-0.9); MONOCYTES % (AUTO) 3.6 % (2-12); NEUTROPHILS # (AUTO) 9.2 X10'3 (1.8-7.7); NEUTROPHILS % (AUTO) 89.4 % (42-75); PLATELET COUNT 129 X10'3 (140-440); RED BLOOD COUNT 4.06 X10'6 (4.20-5.60); RED CELL DISTRIBUTION WIDTH 19.6 % (11.5-14.5); WHITE BLOOD COUNT 10.3 X10'3 (4.5-11.0)
[2018-02-18 05:51] LABS: ALANINE AMINOTRANSFERASE 79 U/L (12-78); ALBUMIN 2.9 G/DL (3.4-5.0); ALBUMIN/GLOBULIN RATIO 0.9 (1.1-1.5); ALKALINE PHOSPHATASE 72 IU/L (46-116); ANION GAP 8 (8-16); ASPARTATE AMINO TRANSFERASE 29 U/L (10-37); BILIRUBIN,TOTAL 0.6 MG/DL (0.1-1.0); BLOOD UREA NITROGEN 50 MG/DL (7-18); BUN/CREATININE RATIO 33.8 (6.6-38.0); CALCIUM 8.2 MG/DL (8.5-10.1); CHLORIDE 108 MMOL/L (99-107); CREATININE 1.48 MG/DL (0.40-0.90); GLUCOSE 190 MG/DL (70-104); PHOSPHORUS 3.4 MG/DL (2.3-4.5); POTASSIUM 4.5 MMOL/L (3.5-5.1); SODIUM 140 MMOL/L (135-145); TOTAL CARBON DIOXIDE 24.3 MMOL/L (24-32); TOTAL PROTEIN 6.3 G/DL (6.4-8.2); eGFR 36 ML/MIN
[2018-02-18 06:00] VITALS: BP 132/66
[2018-02-18 06:02] LABS: ANISOCYTOSIS 2+; ELLIPTOCYTES FEW; LARGE PLATELETS FEW; PLATELET ESTIMATE DECREASED; TEAR DROP CELLS FEW
[2018-02-18] MEDS: K and/or MAG REPLACEMENT MC SCH (07:56)
[2018-02-18] MEDS: vitamin D (cholecalciferol) 1,000 unit tablet PO SCH (08:00)
[2018-02-18] MEDS: sertraline 50mg tablet PO SCH ×2 (08:20→20:50)
[2018-02-18] MEDS: clopidogrel 75mg tablet PO SCH (08:20)
[2018-02-18] MEDS: lactobacillus rhamnosus 10,000 MMU CELLS/CAPSULE PO SCH ×2 (08:20→20:50)
[2018-02-18] MEDS: oxybutynin 5mg tablet PO SCH ×2 (08:20→20:50)
[2018-02-18] MEDS: enoxaparin 40mg/0.4ml syringe SUBCUT SCH (08:21)
[2018-02-18] MEDS: methylPREDNISolone sod succ/PF 40mg inj. IV SCH ×2 (08:21→20:50)
[2018-02-18] MEDS: nystatin 15 GM powder TP SCH ×3 (08:21→20:50)
[2018-02-18] MEDS: fluconazole 100mg tablet PO SCH (08:28)
[2018-02-18] MEDS: normal saline 1000ml 1,000 ML IV SCH (08:43)
[2018-02-18 11:00] VITALS: BP 102/69
[2018-02-18] MEDS: levoFLOXACIN 750MG TABLET PO SCH (11:12)
[2018-02-18 15:00] VITALS: BP 92/75
[2018-02-18 19:00] VITALS: BP 116/58
[2018-02-18] MEDS: traZODone 50mg tablet PO SCH (20:50)
[2018-02-18 23:00] VITALS: BP 144/42
[2018-02-19 03:00] VITALS: BP 138/56
[2018-02-19] MEDS: ipratropium/albuterol 3ml nebule NEB SCH ×6 (03:43→23:16)
[2018-02-19] MEDS: normal saline 1000ml 1,000 ML IV SCH (05:39)
[2018-02-19 06:53] VITALS: BP 121/43
[2018-02-19] MEDS: fluconazole 100mg tablet PO SCH (07:42)
[2018-02-19] MEDS: sertraline 50mg tablet PO SCH ×2 (07:42→20:03)
[2018-02-19] MEDS: lactobacillus rhamnosus 10,000 MMU CELLS/CAPSULE PO SCH ×2 (07:42→20:02)
[2018-02-19] MEDS: clopidogrel 75mg tablet PO SCH (07:42)
[2018-02-19] MEDS: methylPREDNISolone sod succ/PF 40mg inj. IV SCH (07:42)
[2018-02-19] MEDS: vitamin D (cholecalciferol) 1,000 unit tablet PO SCH (07:42)
[2018-02-19] MEDS: oxybutynin 5mg tablet PO SCH ×2 (07:42→20:03)
[2018-02-19] MEDS: enoxaparin 40mg/0.4ml syringe SUBCUT SCH (07:49)
[2018-02-19] MEDS: K and/or MAG REPLACEMENT MC SCH (07:49)
[2018-02-19] MEDS: nystatin 15 GM powder TP SCH ×3 (08:06→20:03)
[2018-02-19 11:00] VITALS: BP 132/54
[2018-02-19 15:00] VITALS: BP 134/51
[2018-02-19 19:00] VITALS: BP 108/55
[2018-02-19] MEDS: traZODone 50mg tablet PO SCH (20:03)
[2018-02-19 23:00] VITALS: BP 132/41
[2018-02-20 03:00] VITALS: BP 103/67
[2018-02-20] MEDS: ipratropium/albuterol 3ml nebule NEB SCH ×6 (03:15→23:05)
[2018-02-20 07:00] VITALS: BP 149/65
[2018-02-20] MEDS: clopidogrel 75mg tablet PO SCH (07:25)
[2018-02-20] MEDS: lactobacillus rhamnosus 10,000 MMU CELLS/CAPSULE PO SCH ×2 (07:25→20:41)
[2018-02-20] MEDS: sertraline 50mg tablet PO SCH ×2 (07:25→20:41)
[2018-02-20] MEDS: oxybutynin 5mg tablet PO SCH ×2 (07:26→20:41)
[2018-02-20] MEDS: vitamin D (cholecalciferol) 1,000 unit tablet PO SCH (07:31)
[2018-02-20] MEDS: fluconazole 100mg tablet PO SCH (07:31)
[2018-02-20] MEDS: enoxaparin 40mg/0.4ml syringe SUBCUT SCH (07:32)
[2018-02-20] MEDS: nystatin 15 GM powder TP SCH ×3 (07:37→20:42)
[2018-02-20] MEDS: K and/or MAG REPLACEMENT MC SCH (08:00)
[2018-02-20 11:00] VITALS: BP 160/80
[2018-02-20] MEDS: levoFLOXACIN 750MG TABLET PO SCH (11:46)
[2018-02-20] MEDS ORDERED: LEVO500T2 PO (11:50)
[2018-02-20] MEDS: ondansetron/PF 4mg/2ml inj IV PRN ×2 (13:57→22:01)
[2018-02-20 15:04] LABS: ALBUMIN 2.8 G/DL (3.4-5.0); ANION GAP 8 (8-16); BLOOD UREA NITROGEN 46 MG/DL (7-18); BUN/CREATININE RATIO 34.3 (6.6-38.0); CALCIUM 8.4 MG/DL (8.5-10.1); CHLORIDE 105 MMOL/L (99-107); CREATININE 1.34 MG/DL (0.40-0.90); GLUCOSE 127 MG/DL (70-104); POTASSIUM 4.3 MMOL/L (3.5-5.1); SODIUM 138 MMOL/L (135-145); TOTAL CARBON DIOXIDE 25.4 MMOL/L (24-32); eGFR 40 ML/MIN
[2018-02-20 19:00] VITALS: BP 153/63
[2018-02-20] MEDS: traZODone 50mg tablet PO SCH (20:41)
[2018-02-20 23:00] VITALS: BP 124/45
[2018-02-21 03:00] VITALS: BP 121/52
[2018-02-21] MEDS: ipratropium/albuterol 3ml nebule NEB SCH ×6 (03:52→23:46)
[2018-02-21 06:53] VITALS: BP 104/40
[2018-02-21] MEDS: K and/or MAG REPLACEMENT MC SCH (07:51)
[2018-02-21] MEDS: clopidogrel 75mg tablet PO SCH (07:56)
[2018-02-21] MEDS: vitamin D (cholecalciferol) 1,000 unit tablet PO SCH (07:56)
[2018-02-21] MEDS: enoxaparin 40mg/0.4ml syringe SUBCUT SCH (07:56)
[2018-02-21] MEDS: sertraline 50mg tablet PO SCH ×2 (07:56→20:54)
[2018-02-21] MEDS: lactobacillus rhamnosus 10,000 MMU CELLS/CAPSULE PO SCH ×2 (07:56→20:54)
[2018-02-21] MEDS: oxybutynin 5mg tablet PO SCH ×2 (07:56→20:54)
[2018-02-21] MEDS: nystatin 15 GM powder TP SCH ×3 (07:57→20:54)
[2018-02-21 11:10] LABS: C DIFF ANTIGEN NEGATIVE (NEGATIVE); C DIFF SPECIMEN=DIARRHEA? ACCEPTABLE; C DIFFICILE TOXINS A&B NEGATIVE (Neg)
[2018-02-21 12:46] VITALS: BP 95/38
[2018-02-21 15:00] VITALS: BP 102/42
[2018-02-21 19:00] VITALS: BP 98/37
[2018-02-21] MEDS: traZODone 50mg tablet PO SCH (20:54)
[2018-02-21 23:00] VITALS: BP 105/51
[2018-02-22 03:00] VITALS: BP 102/43
[2018-02-22] MEDS: ipratropium/albuterol 3ml nebule NEB SCH ×3 (03:56→11:42)
[2018-02-22 06:00] VITALS: BP 112/57
[2018-02-22] MEDS: oxybutynin 5mg tablet PO SCH (08:19)
[2018-02-22] MEDS: lactobacillus rhamnosus 10,000 MMU CELLS/CAPSULE PO SCH (08:19)
[2018-02-22] MEDS: sertraline 50mg tablet PO SCH (08:19)
[2018-02-22] MEDS: clopidogrel 75mg tablet PO SCH (08:19)
[2018-02-22] MEDS: enoxaparin 40mg/0.4ml syringe SUBCUT SCH (08:19)
[2018-02-22] MEDS: nystatin 15 GM powder TP SCH (08:20)
[2018-02-22] MEDS: vitamin D (cholecalciferol) 1,000 unit tablet PO SCH (08:20)
[2018-02-22 11:00] VITALS: BP 122/75
== END 2018-02-22 15:00 | disposition home health service (06) | DRG 871 ==
LOC: ER 22:36 → EDBD 02-08 02:15 → ED HOLD 02-08 02:15 → PCU 3S 02-08 03:10
PROVIDERS: ADMIT Hospitalist; ATTEND Internal Medicine
DX: A41.9 Sepsis, unspecified organism (principal); G93.41 Metabolic encephalopathy; N17.9 Acute kidney failure, unspecified; N39.0 Urinary tract infection, site not specified; J44.1 Chronic obstructive pulmonary disease with (acute) exacerbation; Z68.43 Body mass index [BMI] 50.0-59.9, adult; R65.20 Severe sepsis without septic shock; B37.2 Candidiasis of skin and nail; E86.0 Dehydration; I65.23 Occlusion and stenosis of bilateral carotid arteries; K52.9 Noninfective gastroenteritis and colitis, unspecified; L30.4 Erythema intertrigo; B96.20 Unspecified Escherichia coli [E. coli] as the cause of diseases classified elsewhere; B95.4 Other streptococcus as the cause of diseases classified elsewhere; N18.3 Chronic kidney disease, stage 3 (moderate); D64.9 Anemia, unspecified; E66.01 Morbid (severe) obesity due to excess calories; F17.200 Nicotine dependence, unspecified, uncomplicated; Z79.02 Long term (current) use of antithrombotics/antiplatelets; Z79.899 Other long term (current) drug therapy; Z86.73 Personal history of transient ischemic attack (TIA), and cerebral infarction without residual deficits; Z71.6 Tobacco abuse counseling
CPT/HCPCS: 36415; 70450; 71045; 80048; 80053; 80202; 80305; 81001; 81003; 81025; 82140; 82272; 82607; 82728; 82746; 82948; 83540; 83550; 83605; 83735; 84100; 84443; 85025; 85610; 86592; 87040; 87045; 87046; 87070; 87077; 87088; 87186; 87324; 87449; 93005; 93306; 93880; 94640; 94760; 96365; 96366; 97116; 97161; 97530; 99285; A6257; A6449; C1758; J0696; J1450; J1650; J1956; J2405; J2920; J2930; J3370; J3420; J7030